=== PATIENT | female | born 1985 | race African-American/Black ===

== ENCOUNTER 2017-04-16 08:26 | Inpatient (IN) | payer BC ==
--- NOTE | 2017-03-18 11:41 | HP ---
DATE OF ADMISSION: 04/16/2017 REASON FOR ADMISSION: Abdominal pain, recurrent chronically incarcerated ventral incisional hernia. BRIEF HISTORY: This is a 31-year-old female who I initially met in October of 2016, for an immediate, recurrent ventral incisional hernia. At that time, the patient had a robotically-assisted hernia repair with a 15-cm round, Symbotex piece of mesh done at [facility] by Dr. Epps. Several days following that surgery, the patient had presented to the emergency room with shortness of breath and diagnosed with having a pulmonary embolism and was then subsequently anticoagulated. At the time of my evaluation in October, the patient was off anticoagulation but is not sure whether or not she has undergone a hypercoagulable workup. Due to the proximity of my visit and her pulmonary embolism, I suggested that we do not do any acute surgery at that time and undergo a complete workup for her hypercoagulability and then discuss surgical options. Patient proceeded as such, her hypercoagulable workup was negative, and she is now here to undergo definitive hernia repair. Patient states that since I had seen her, the hernia has gotten significantly large. Now, she has again pain in the area when she does prolonged standing, lifting, or any type of Valsalva-type maneuvers. At the time I had seen her in May, she states the lump in her abdomen was the size of a softball, and now, it is about a softball and a half. PAST MEDICAL HISTORY: No coronary disease, hypertension, or diabetes. Patient has a history of a pulmonary embolism; hypercoagulable workup negative; patient off anticoagulation. PAST SURGICAL HISTORY: As mentioned above. She has also had knee surgery as well. MEDICATIONS: None. ALLERGIES: None. SOCIAL HISTORY: Patient does not smoke or drink. PHYSICAL EXAMINATION: Lungs: Clear. Heart: Regular in rate and rhythm. Abdomen: Moderately obese, soft, nontender, nondistended. She has a large recurrent incisional hernia. The hernia when it is protruding is approximately the size of a softball and a half as she had stated. The hernia is chronically incarcerated and not completely reducible. IMPRESSION/PLAN: Early, recurrent, chronically incarcerated ventral incisional hernia. This is a 31-year-old female who underwent a hernia repair back in May of 2016. She had an early recurrence, and at this time, the hernia recurrence has gotten worse and enlarged, and I would recommend a repair. Incidentally, she developed a postoperative PE that was treated for approximately 3 months, and she underwent a hypercoagulable workup which was noted to be negative. Patient and I had a long conversation regarding the pros and cons of various surgical approaches such as laparoscopic/robotic versus open. I think given her problem and previous failure and old surgery, I think she is best approached in an open fashion with a retrorectus repair and a bilateral component separation. The indications, alternatives, and complications of the procedure were discussed. Questions answered. We will plan to obtain written consent the day of surgery. RUDDY MENDOZA M.D. [id number] cc: Isabella Garcia MD; Rola Sanchez [place];
[2017-04-15 08:27] VITALS: BMI 32.4
[2017-04-16] MEDS ORDERED: ceFAZolin SODIUM 1 GM VIAL ONE ×2 (09:22→12:46)
[2017-04-16] MEDS ORDERED: ENOXAPARIN NA (PORCINE) 40 MG/0.4 ML DISP.SYRIN SQ ONE (09:27)
[2017-04-16] MEDS ORDERED: DEXAMETHASONE SOD PHOSPHATE/PF 10 MG/ML SDV ONE (10:41)
[2017-04-16] MEDS ORDERED: ROPIVACAINE HCL 0.5% 30ML VIAL ONE (10:41)
[2017-04-16] MEDS ORDERED: MIDAZOLAM HCL 2 MG/2 ML SINGLE DOSE VIAL ONE ×3 (10:42→10:52)
[2017-04-16] MEDS ORDERED: ROCURONIUM BROMIDE 50 MG/5 ML VIAL ONE ×2 (10:51→13:05)
[2017-04-16] MEDS ORDERED: LIDOCAINE HCL 2% 100 MG/5 ML DISP.SYRIN ONE (10:51)
[2017-04-16] MEDS ORDERED: fentaNYL CITRATE 250 MCG/5 ML VIAL ONE (10:51)
[2017-04-16] MEDS ORDERED: PROPOFOL 20 ML ONE (10:51)
[2017-04-16] MEDS ORDERED: ONDANSETRON 4 MG/2 ML VIAL ONE (10:51)
[2017-04-16] MEDS ORDERED: DEXAMETHASONE SOD PHOSPHATE 4 MG/1 ML VIAL ONE ×2 (10:51→14:51)
[2017-04-16] MEDS ORDERED: HYDROmorphone HCL CARPU-JECT 2 MG/1 ML DISP.SYRIN IVPUSH PRN (12:07)
[2017-04-16] MEDS ORDERED: PROMETHAZINE HCL 25 MG/1 ML VIAL IVPB PRN (12:07)
[2017-04-16] MEDS ORDERED: ONDANSETRON 4 MG/2 ML VIAL IVPUSH PRN ×2 (12:07→12:58)
[2017-04-16] MEDS ORDERED: LACTATED RINGERS SOLUTION 1,000 ML IV SCH (12:15)
[2017-04-16] MEDS ORDERED: ceFAZolin SODIUM 1 GM VIAL IVPB ONE (12:40)
[2017-04-16] MEDS ORDERED: MORPHINE SULFATE 10 MG/1 ML *VIAL IVPUSH PRN (12:58)
[2017-04-16] MEDS ORDERED: ACETAMINOPHEN 325 MG TABLET (FP) PO PRN (12:58)
[2017-04-16] MEDS ORDERED: oxyCODONE HCL 5 MG TABLET PO PRN (12:58)
[2017-04-16] MEDS ORDERED: D5-1/2NS+20 MEQ KCL - 20 MEQ/1,000 ML INFUS.BAG IV SCH (13:00)
[2017-04-16] MEDS ORDERED: ePHEDrine SULFATE 50 MG/1 ML AMPULE ONE (13:23)
[2017-04-16] MEDS ORDERED: NEOSTIGMINE METHYLSULFATE 0.5 MG/ML - 10 ML MDV ONE (14:55)
[2017-04-16] MEDS ORDERED: GLYCOPYRROLATE 0.2 MG/1 ML VIAL ONE (14:55)
[2017-04-16] MEDS ORDERED: IBUPROFEN 800 MG/8 ML IJ IVPB ONE (15:34)
[2017-04-16] MEDS: IBUPROFEN 800 MG/8 ML IJ IVPB SCH ×2 (18:08→20:24)
--- NOTE | 2017-04-16 20:35 | CONSULT ---
Consult - text type - Consultation Consultation Note: [facility] Pt seen and examined in ICU CC: S/p ventral hernia repain HPI: 31 y/o woman POD #0 after uneventful but complex revision of hernia repair by Dr Dasilva. Had initial surgery in Oct 2016, complicated by PE (hypercoaguable workup negative), no returns to [facility] of defin[facility]. Pt extubated in PACU and admitted to ICU for overnight observation. Pts pain in controlled, she is mildly tachycardic (110) but otherwise hemodynamically stable, has no resp distress and no acute complaints. She received intra-op ancef, had no significant blood loss, and has minimal output from DUSTIN. PM/SHX: -hernia as above -PE, s/p course of A/C Social Hx: no toxic habits, independent ADLs Family Hx: non contrib Ambulatory Orders Ascorbic Acid [Vitamin C] 500 mg PO DAILY 04/15/17 Multivitamin [One Daily] 1 each PO DAILY 04/15/17 Oxycodone HCl/Acetaminophen [Percocet 5-325 mg Tablet] 1 tab PO Q4H PRN #42 tablet MDD 6 04/16/17 Current Medications Acetaminophen (Tylenol -) 650 mg PO Q4H PRN PRN Reason: FEVER Chlorhexidine Gluconate (Hibiclens For Decolonization -) 1 applic TP HS [facility] Diphenhydramine HCl (Benadryl Injection -) 25 mg IVPUSH ONCE PRN PRN Reason: FOR ITCHING Last Admin: 04/16/17 18:16 Dose: 25 mg Enoxaparin Sodium (Lovenox -) 40 mg SQ DAILY [facility] Fentanyl (Sublimaze Injection -) 25 mcg IVPUSH [id number] PRN PRN Reason: PAIN-PACU ORDER X 4 DOSES ONLY Fentanyl (Sublimaze Injection -) 50 mcg IVPUSH [id number] PRN PRN Reason: PAIN-PACU ORDER X 4 DOSES ONLY Hydromorphone HCl (Dilaudid Injection -) 0.5 mg IVPUSH [id number] PRN PRN Reason: PAIN-PACU ORDER X 4 DOSES ONLY Lactated Ringer's (Lactated Ringers Solution) 1,000 mls @ 125 mls/hr IV ASDIR [facility] Potassium Chloride/Dextrose/Sod Cl (D5-1/2ns+20 Meq Kcl -) 20 meq in 1,000 mls @ 100 mls/hr IV ASDIR [facility] Last Admin: 04/16/17 17:00 Dose: 100 mls/hr Ibuprofen (Caldolor Injection -) 800 mg IVPB Q6H [facility] Stop: 04/18/17 07:16 Last Admin: 04/16/17 20:24 Dose: 800 mg Morphine Sulfate (Morphine Injection -) 8 mg IVPUSH Q3H PRN PRN Reason: PAIN LEVEL 6-10 Mupirocin (Bactroban 2% Ointment -) 1 applic TP BID [facility] Ondansetron HCl (Zofran Injection) 4 mg IVPUSH Q6H PRN PRN Reason: NAUSEA AND/OR VOMITING Oxycodone HCl (Roxicodone -) 7.5 mg PO Q4H PRN PRN Reason: PAIN LEVEL 1-5 Pantoprazole Sodium (Protonix Iv) 40 mg IVPUSH DAILY [facility] Promethazine HCl (Phenergan Injection -) 12.5 mg IVPB Q6H PRN PRN Reason: NAUSEA-FOR RESCUE AFTER 15 MIN Vital Signs Temp 98.6 F 04/16/17 18:00 Pulse 88 04/16/17 20:00 Resp 19 04/16/17 20:00 BP 115/69 04/16/17 20:00 Pulse Ox 100 04/16/17 17:27 Intake & Output 04/15/17 04/16/17 04/16/17 23:59 11:59 23:59 Intake Total 2100 Output Total 1700 Balance 400 Weight 93.894 kg 95.963 kg Intake: IV 2100 D5-1/2NS+20 MEQ KCL - 20 200 meq In 1,000 ml @ 100 mls /hr IV ASDIR [facility] Rx#: [id number] Output: Urine 1600 Estimated Blood Loss 100 Other: Voiding Method Bedpan Height 5 ft 7 in Body Mass Index (BMI) 32.4 Weight Measurement Method Stated by Patient Built in [facility] No labs, no imaging ROS: negative except as per HPI PE: Gen: non toxic, resting pt, INAD HEENT: PERRL, NCAT PULM: Clear anterior, no wheezes CV: RRR, no m/r/g appreciated ABD: surgical site CDI, DUSTIN wiht minimal ser/sang drainage, hypoactive BS EXT: 2+ pulses A/ POD #0 from hernia revision P/ -pain control -DVT prophy -Incentive spirometery -early ambuation -advance diet as per surg -Ok for med surg [place] ACNP [id number]
[2017-04-16] MEDS ORDERED: CHLORHEXIDINE GLUCONATE 4% CLEANSER FOR DECOLONIZATION TP SCH (22:00)
[2017-04-16] MEDS: MUPIROCIN 2% TOPICAL OINTMENT 22 GM TUBE TP SCH (22:56)
[2017-04-17] MEDS: IBUPROFEN 800 MG/8 ML IJ IVPB SCH (02:56)
[2017-04-17 06:24] LABS: BASO % 0.1 % (0-2.0); HEMATOCRIT 35.4 % (32.4-45.2); HEMOGLOBIN 11.9 GM/dL (10.7-15.3); LYMPH % 9.4 % (8-40); MCH 29.8 pg (25.7-33.7); MCHC 33.5 g/dl (32.0-36.0); MEAN CELL VOLUME 88.8 fl (80-96); MEAN PLT VOLUME 9.8 fl (7.5-11.1); MONO % 7.5 % (3.8-10.2); PLATELET COUNT 176 K/MM3 (134-434); RBC 3.99 M/mm3 (3.60-5.2); RDW 13.1 % (11.6-15.6); WHITE BLOOD COUNT 10.2 K/mm3 (4.0-10.0)
--- NOTE | 2017-04-17 07:36 | OP ---
DATE OF OPERATION: 04/16/2017 PREOPERATIVE DIAGNOSIS: Recurrent chronically incarcerated ventral incisional hernia, abdominal pain, abdominal wall diastasis. POSTOPERATIVE DIAGNOSIS: Recurrent chronically incarcerated ventral incisional hernia, abdominal pain, abdominal wall diastasis. PROCEDURE: Open bilateral component separation, repair of complex, chronically incarcerated recurrent ventral incisional hernia with mesh. SURGEON: Zaki Dasilva MD [employer] OPERATOR: Ga Winters MD ANESTHESIA: Rene Gutierrez MD (general), ESTIMATED BLOOD LOSS: Minimal. SPECIMEN: None. INDICATIONS/PROCEDURE: This is a 31-year-old female who underwent a robotic repair of an incisional hernia back in May of 2016. She had immediate recurrence, and the hernia has gotten worse, and therefore she wished to have this repaired. Patient states she has a large lump in the lower abdomen, and she notices significant asymmetry between her left and right sides. Patient also knows that she has a midline diastasis beyond the umbilicus. Patient was identified and appropriately positioned on the operating room table. After placement of general anesthesia, the abdomen was prepped and draped in the usual sterile fashion with ChloraPrep. A midline incision overlying the hernia was made deep in the subcutaneous tissue. The hernia was dissected free from the subcutaneous tissue bluntly down to the level of the fascia. The fascia on the patients right side was noted to be retracted towards the midclavicular line. Due to the significant retraction of the tissue, the rectus was subsequently split and opened. In doing so, the sac was opened, as well. Underneath the sac, there were multiple loculi, pockets of seroma. Some were open and drained, others were not violated. The bowel was adherent to the previous old mesh superiorly. The mesh itself was peritonealized, but definitely below the posterior rectus sheath. Given this finding, the posterior rectus sheath was then subsequently opened on th patients right side, and the space was then developed bluntly. Due to her previous surgery, the rectus muscle was adherent to the posterior sheath at various locations that was divided and therefore was divided sharply. Once the muscle was split, the rectus space was then developed out laterally towards the perforating vessels. Just medial to the perforating vessels, the fascia was then subsequently divided sharply, and a myofascial separation of the transversus was performed between the transversus obliques and the rectus. This was taken approximately 4 inches above and below the actual defect. Once this was accomplished on the right side, a similar technique and approach was used on the left side. The rectus sheath was opened on the left side sharply, and again due to the previous surgeries, there were areas where the rectus muscle itself was densely adherent to the sheath, and therefore it had to be divided sharply. For the most part, the rectus muscle was able to be bluntly, and once I encountered the perforating vessels, the fascia just medial to the perforating vessels was divided sharply, and the transversus was released from the obliques and rectus junction. The myofascial separation continued approximately 4-5 inches above and below the actual defect. Next the transversus was then reapproximated with a running 2-0 absorbable V-Loc suture. Once the transversus was closed, the defect measured, operative field irrigated and noted to be hemostatic. A large 50 x 50 piece of Versatex mesh was cut down to the appropriate size of approximately 30 x 30, and a piece of 16 x 20 piece of LETICIA Bio was used. The TELE Bio was sewn to the Versatex with interrupted 3-0 Vicryl sutures, and the TELE was placed on the transversus side, whereas, the Versatex was placed just touching on the sub-rectus side. The mesh was fanned to its appropriate place, stretched appropriately, and then anchored with interrupted AbsorbaTack and ReliaTack anchors. The midline of the mesh was anchored with interrupted, inverted No. 1 Prolene suture. The mesh itself was irrigated, the operative field examined, noted to be hemostatic. The fascia overlying the mesh was then reapproximated with a running No. 1 PDS suture. The subcutaneous space was irrigated. Due to the large pocket that the patient had in the subcutaneous tissue in the right lower quadrant, a 10 flat DUSTIN was placed into this pocket and brought through a separate stab incision in the left lower quadrant. The dermis was reapproximated with interrupted, inverted 3-0 Vicryl sutures, and the skin closed with errol followed by Dermabond. At the conclusion of this case sponge counts were correct. ATTESTATION: Brief operative note handwritten on the preprinted form. [facility] queried prior to giving any narcotics. Piedad BARTHOLOMEW [id number] cc: Dr. Isabella Garcia
[2017-04-17 08:40] LABS: ALBUMIN 2.8 g/dl (3.4-5.0); ALK PHOS 46 U/L (45-117); ANION GAP 9 (8-16); BLOOD UREA NITROGEN 11 mg/dL (7-18); CHLORIDE 105 mmol/L (98-107); CO2 27 mmol/L (21-32); CREATININE 0.7 mg/dL (0.55-1.02); GLUCOSE,RANDOM 82 mg/dL (74-106); MAGNESIUM 1.8 mg/dL (1.8-2.4); PHOSPHOROUS 3.6 mg/dL (2.5-4.9); POTASSIUM 4.3 mmol/L (3.5-5.1); SGOT/AST 20 U/L (15-37); SGPT/ALT 20 U/L (12-78); SODIUM 141 mmol/L (136-145); TOT PROT 6.1 g/dl (6.4-8.2)
[2017-04-17 08:41] LABS: BILIRUBIN,TOTAL 0.5 mg/dL (0.2-1.0)
[2017-04-17] MEDS: MUPIROCIN 2% TOPICAL OINTMENT 22 GM TUBE TP SCH (09:08)
--- NOTE | 2017-04-17 09:21 | DS ---
DATE OF ADMISSION: 04/16/2017 DATE OF DISCHARGE: 04/17/2017 ADMITTING DIAGNOSIS: Complex ventral hernia. BRIEF HISTORY: This is a 31-year-old female who was admitted to [facility] on April 16. She underwent a complex repair of a ventral hernia utilizing mesh as well as component separation and myofascial release. Please reference Dr. Zaki Dasilva's operative report for further details. She is being discharged home today, April 17. She is tolerating diet, voiding, and ambulating. She will go home with a new prescription for Percocet which she will take as needed for pain. She will continue her home medications. She will go home with a Rudolph-Mcmahon drain. She will be evaluated Friday for drain removal. She is okay to walk. She is okay to climb stairs. She will not lift anything more than 20 pounds. She will only sponge bathe while the drain is in. She can be on regular diet. DO SANTY WIN/[id number]
--- NOTE | 2017-04-17 09:37 | PN ---
Physical Exam: SUBJECTIVE: Patient seen and examined. No new c/o. Had breakfast, has been going to bathroom by herself. Was told that she was discharged home today by surgeon. Pain is controlled with meds. Using incentive spirometry. OBJECTIVE: Vital Signs Period Temp Pulse Resp BP Sys/Muñoz Pulse Ox Last 24 Hr 98.1 F-99.0 F 55-99 14-21 101-134/44-79 97-100 GENERAL: The patient is awake, alert, and fully oriented, in no acute distress ( receiving pain meds). HEAD: Normal with no signs of trauma. EYES: PERRL, extraocular movements intact. ENT: NC- 2L. Moist mucus membranes. NECK: supple. LUNGS: Breath sounds equal, clear to auscultation bilaterally, no wheezes, no crackles. HEART: Regular rate and rhythm, S1, S2 without murmur, rub or gallop. ABDOMEN: Soft, appropriately tender post surgery, Mid line stables above and below umbilicus, clean surgical wound site. DUSTIN drain LLQ, draining serosanguinous fluid EXTREMITIES: 2+ pulses, warm, well-perfused, no edema. NEUROLOGICAL: Cranial nerves II through XII grossly intact. Normal speech, gait not observed. PSYCH: Normal mood, normal affect. SKIN: Warm, dry, normal turgor, no rashes or lesions noted Lines: NC, peripheral line. Laboratory Results - last 24 hr 04/16/17 04/16/17 04/16/17 08:43 08:43 09:30 WBC RBC Hgb Hct MCV MCH MCHC RDW Plt Count MPV Neutrophils % Lymphocytes % Monocytes % Eosinophils % Basophils % Sodium Potassium Chloride Carbon Dioxide Anion Gap BUN Creatinine Creat Clearance w eGFR Random Glucose Calcium Phosphorus Magnesium Total Bilirubin AST ALT Alkaline Phosphatase Total Protein Albumin Serum , Qual Negative Blood Type O POSITIVE O POSITIVE Antibody Screen Negative 04/17/17 04/17/17 05:10 05:10 WBC 10.2 H RBC 3.99 Hgb 11.9 Hct 35.4 MCV 88.8 MCH 29.8 MCHC 33.5 RDW 13.1 Plt Count 176 MPV 9.8 Neutrophils % 83.0 H Lymphocytes % 9.4 Monocytes % 7.5 Eosinophils % 0.0 Basophils % 0.1 Sodium 141 Potassium 4.3 Chloride 105 Carbon Dioxide 27 Anion Gap 9 BUN 11 Creatinine 0.7 Creat Clearance w eGFR > 60 Random Glucose 82 Calcium 8.0 L Phosphorus 3.6 Magnesium 1.8 Total Bilirubin 0.5 AST 20 ALT 20 Alkaline Phosphatase 46 Total Protein 6.1 L Albumin 2.8 L Serum , Qual Blood Type Antibody Screen Active Medications Generic Name Dose Route Start Last Admin Trade Name Freq PRN Reason Stop Dose Admin Acetaminophen 650 mg 04/16/17 12:58 Tylenol - PO Q4H PRN FEVER Chlorhexidine Gluconate 1 applic 04/16/17 22:00 04/16/17 22:57 Hibiclens For Decolonization - TP 1 applic HS [facility] Administration Diphenhydramine HCl 25 mg 04/16/17 16:02 04/16/17 18:16 Benadryl Injection - IVPUSH 25 mg ONCE PRN Administration FOR ITCHING Enoxaparin Sodium 40 mg 04/17/17 10:00 04/17/17 09:08 Lovenox - SQ 40 mg DAILY [facility] Administration Hydromorphone HCl 0.5 mg 04/16/17 12:07 Dilaudid Injection - IVPUSH [id number] PRN PAIN-PACU ORDER X 4 DOSES ONLY Lactated Ringer's 1,000 mls @ 125 mls/hr 04/16/17 12:15 04/16/17 23:15 Lactated Ringers Solution IV Not Given ASDIR [facility] Potassium Chloride/Dextrose/Sod Cl 20 meq in 1,000 mls @ 100 mls/hr 04/16/17 13:00 04/16/17 17:00 D5-1/2ns+20 Meq Kcl - IV 100 mls/hr ASDIR [facility] Administration Ibuprofen 800 mg 04/16/17 13:15 04/17/17 02:56 Caldolor Injection - IVPB 04/18/17 07:16 800 mg Q6H [facility] Administration Morphine Sulfate 8 mg 04/16/17 12:58 Morphine Injection - IVPUSH Q3H PRN PAIN LEVEL 6-10 Mupirocin 1 applic 04/16/17 22:00 04/17/17 09:08 Bactroban 2% Ointment - TP 1 applic BID [facility] Administration Ondansetron HCl 4 mg 04/16/17 12:07 Zofran Injection IVPUSH Q6H PRN NAUSEA AND/OR VOMITING Oxycodone HCl 7.5 mg 04/16/17 12:58 Roxicodone - PO Q4H PRN PAIN LEVEL 1-5 Pantoprazole Sodium 40 mg 04/17/17 10:00 04/17/17 09:08 Protonix Iv IVPUSH 40 mg DAILY [facility] Administration Promethazine HCl 12.5 mg 04/16/17 12:07 Phenergan Injection - IVPB Q6H PRN NAUSEA-FOR RESCUE AFTER 15 MIN ASSESSMENT/PLAN: 31 y/o woman POD #0 after uneventful but complex revision of hernia repair by Dr Dasilva. Had initial surgery in Oct 2016, complicated by PE (hypercoaguable workup negative), received lovenox x 2 months,after initial surgery, received 1 dose lovenox perioperative, but cleared off lovenox this surgery. Pt extubated in PACU and admitted to ICU for overnight observation Pulm: Acute hypoxic respiratory failure s/p abdominal ventral hernia revision On NC-2L this am s/p surgery D/cd NC and patient tolerated fine Cardio/Hemonc: Pt developed PE s/p initial sx in Oct 2016 received lovenox x 2 months,after initial surgery, received 1 dose lovenox perioperative, but cleared off lovenox this surgery Per pt- cleared by hemonc and does not need further AC Early ambulation-Pt currently out of bed to bathroom For D/C planning Abdomen: POD1 s/p ventral revision of hernia repair Clean surgical wound site, with errol and drain in place To follow up with surgeon- Dr Dasilva [place] on Friday Wound care and follow up per surgery Pain mx per surgery Resume diet- D/w pt to monitor for flatus or features of obstruction Continue incentive spirometry Dispo: D/C home -per surgery Visit type - Emergency Visit Emergency Visit: Yes ED Registration Date: 04/16/17 Care time: The patient presented to the Emergency Department on the above date and was hospitalized for further evaluation of their emergent condition. - New Patient This patient is new to me today: Yes Date on this admission: 04/17/17 - Critical Care Critical Care patient: Yes Total Critical Care Time (in minutes): 38 Critical Care Statement: The care of this patient involved high complexity decision making to prevent further life threatening deterioration of the patient 's condition and/or to evaluate & treat vital organ system(s) failure or risk of failure. - Discharge Referral Referred to [facility] Med P.C.: No
[2017-04-17] MEDS ORDERED: PANTOPRAZOLE SODIUM 40 MG VIAL IVPUSH SCH (10:00)
[2017-04-17] MEDS ORDERED: ENOXAPARIN NA (PORCINE) 40 MG/0.4 ML DISP.SYRIN SQ SCH (10:00)
[2017-04-17 10:03] VITALS: BP 121/82; PULSE 72; TEMP 98
--- NOTE | 2017-04-17 10:29 | PN ---
Progress Note (short form) - Note Progress Note: Post op day#1.S/P Repair of complex ventral hernia under GA uneventful.P71.BP121 /82 and Spo2 100% on RA.Patient stable.No any anesthesia related problem.Patient DC from the anesthesia care.
--- NOTE | 2017-04-17 11:31 | PN ---
Teaching Attending Note Name of Resident: Simi Cornejo ATTENDING PHYSICIAN STATEMENT I saw and evaluated the patient. I reviewed the resident's note and discussed the case with the resident. I agree with the resident's findings and plan as documented. SUBJECTIVE: Pt seen and examined in the ICU. Pain controlled with current regimen. No shortness of breath or chest pain. Tolerated PO. OBJECTIVE: Last Vital Signs Temp Pulse Resp BP Pulse Ox 98.0 F 72 18 121/82 97 04/17/17 10:00 04/17/17 10:00 04/17/17 10:00 04/17/17 10:04/17/17 08:58 Intake & Output 04/14/17 04/15/17 04/16/17 04/17/17 23:59 23:59 23:59 23:59 Intake Total 3150 2350 Output Total 1700 15 Balance 1450 2335 Weight 93.894 kg 95.963 kg 95.963 kg Gen: NAD at rest Heart: RRR Lung: decreased breath sounds at the bases Abd: soft, nontender, +DUSTIN with serosanguinous drainage Ext: no edema CBC, BMP 04/17/17 05:10 04/17/17 05:10 Active Medications Acetaminophen (Tylenol -) 650 mg PO Q4H PRN PRN Reason: FEVER Chlorhexidine Gluconate (Hibiclens For Decolonization -) 1 applic TP HS [facility] Last Admin: 04/16/17 22:57 Dose: 1 applic Diphenhydramine HCl (Benadryl Injection -) 25 mg IVPUSH ONCE PRN PRN Reason: FOR ITCHING Last Admin: 04/16/17 18:16 Dose: 25 mg Enoxaparin Sodium (Lovenox -) 40 mg SQ DAILY [facility] Last Admin: 04/17/17 09:08 Dose: 40 mg Hydromorphone HCl (Dilaudid Injection -) 0.5 mg IVPUSH [id number] PRN PRN Reason: PAIN-PACU ORDER X 4 DOSES ONLY Lactated Ringer's (Lactated Ringers Solution) 1,000 mls @ 125 mls/hr IV ASDIR [facility] Last Admin: 04/16/17 23:15 Dose: Not Given Potassium Chloride/Dextrose/Sod Cl (D5-1/2ns+20 Meq Kcl -) 20 meq in 1,000 mls @ 100 mls/hr IV ASDIR [facility] Last Admin: 04/16/17 17:00 Dose: 100 mls/hr Ibuprofen (Caldolor Injection -) 800 mg IVPB Q6H [facility] Stop: 04/18/17 07:16 Last Admin: 04/17/17 02:56 Dose: 800 mg Morphine Sulfate (Morphine Injection -) 8 mg IVPUSH Q3H PRN PRN Reason: PAIN LEVEL 6-10 Mupirocin (Bactroban 2% Ointment -) 1 applic TP BID [facility] Last Admin: 04/17/17 09:08 Dose: 1 applic Ondansetron HCl (Zofran Injection) 4 mg IVPUSH Q6H PRN PRN Reason: NAUSEA AND/OR VOMITING Oxycodone HCl (Roxicodone -) 7.5 mg PO Q4H PRN PRN Reason: PAIN LEVEL 1-5 Pantoprazole Sodium (Protonix Iv) 40 mg IVPUSH DAILY [facility] Last Admin: 04/17/17 09:08 Dose: 40 mg Promethazine HCl (Phenergan Injection -) 12.5 mg IVPB Q6H PRN PRN Reason: NAUSEA-FOR RESCUE AFTER 15 MIN ASSESSMENT AND PLAN: s/p Hernia Revision - pain control - incentive spirometry - monitor drain output - PO as tolerated - DVT prophylaxis - d/c planning
== END 2017-04-17 11:32 | disposition home or self-care (01) | DRG 353 ==
LOC: JSAMEDAYSX 08:26 → EDSTATUS 09:30 → JICU 17:14
PROVIDERS: ADMIT Surgery; ATTEND Surgery
PROC: 0WUF0JZ Supplement Abdominal Wall with Synthetic Substitute, Open Approach (ICD-10-PCS; principal; 2017-04-16 11:30)
DX: K43.0 Incisional hernia with obstruction, without gangrene (principal); J96.01 Acute respiratory failure with hypoxia; Q79.59 Other congenital malformations of abdominal wall; Z86.711 Personal history of pulmonary embolism
CPT/HCPCS: 36415; 80053; 83735; 84100; 84703; 85025; 86850; 86900; 86901; 94010; 94760